=== PATIENT | female | born 1995 | race American Indian/Alaskan Native ===

== ENCOUNTER 2018-01-25 15:45 | Emergency (ER) | payer SELFPAY ==
[2018-01-25 16:52] LABS: HCG Qualitative,Urine Negative (Negative)
[2018-01-25] MEDS ORDERED: ZOFRAN IV ONE ×2 (16:55→23:28)
[2018-01-25] MEDS ORDERED: NACL 0.9% 1000 ML IV ONE (16:55)
--- NOTE | 2018-01-25 16:55 | Emergency Department Report ---
Blank Doc - Documentation Documentation: Patient is a 22-year-old female who is presenting with nausea vomiting diarrhea for approximately a day and a half. Patient is dizzy when she stands. Patient is very ill. Has diffuse abdominal pain. Patient will be moved to the main area for further treatment.
[2018-01-25] MEDS ORDERED: PEPCID IV ONE (16:56)
[2018-01-25 16:57] LABS: Bacteria,Urine 1+ /HPF (Negative); Bilirubin,Urine NEG (Negative); Blood,Urine MOD (Negative); Color,Urine Yellow (Yellow); Mucus,Urine 3+ /HPF; Protein,Urine <15 mg/dL mg/dL (Negative); Urobilinogen,Urine < 2.0 mg/dL (<2.0)
[2018-01-25 17:33] LABS: Basophils % (Auto) 0.2 % (0.0-1.8); Eosinophils % (Auto) 0.1 % (0.0-4.3); Hematocrit 34.1 % (30.3-42.9); Hemoglobin 11.2 gm/dl (10.1-14.3); Lymphocytes # (Auto) 0.8 K/mm3 (1.2-5.4); Lymphocytes % (Auto) 7.1 % (13.4-35.0); Mean Corpuscular HGB Conc 33 % (30-34); Mean Corpuscular Hemoglobin 29 pg (28-32); Mean Corpuscular Volume 87 fl (79-97); Monocytes # (Auto) 0.3 K/mm3 (0.0-0.8); Monocytes % (Auto) 2.6 % (0.0-7.3); Platelet Count 336 K/mm3 (140-440); Red Blood Count 3.92 M/mm3 (3.65-5.03); Red Cell Distribution Width 16.4 % (13.2-15.2)
[2018-01-25 17:56] LABS: Alanine Aminotransferase 14 units/L (7-56); BUN/Creatinine Ratio 10; Blood Urea Nitrogen 6 mg/dL (7-17); Hemolysis Index 1; Lipase 15 units/L (13-60)
[2018-01-25] MEDS ORDERED: REGLAN IV ONE (18:14)
[2018-01-25] MEDS ORDERED: BENADRYL IV ONE (18:14)
--- NOTE | 2018-01-25 18:16 | Emergency Department Report ---
ED N/V/D HPI - General Chief complaint: Nausea/Vomiting/Diarrhea Stated complaint: ABDOMINAL/CHEST PAIN/SICKNESS Time Seen by Provider: 01/25/18 16:22 Source: EMS Mode of arrival: Wheelchair Limitations: No Limitations - History of Present Illness Initial comments: 22-year-old female with no significant past medical or surgical history presents to the hospital complaining of nausea, vomiting, and diarrhea since this a.m. Patient has not been able to tolerate any by mouth intake. She has some "suffocating" left parasternal chest pain. She denies abdominal pain, fever, recent travel, sick contacts, hematuria, melena, or hematochezia. - Related Data Previous Rx's Medication Instructions Recorded Last Taken Type Famotidine [Pepcid] 20 mg PO BID #20 tablet 01/26/18 Unknown Rx Nitrofurantoin [place]/M-Cryst 100 mg PO Q12HR #10 capsule 01/26/18 Unknown Rx [Macrobid CAP] Ondansetron [Zofran Odt] 4 mg PO Q8HR PRN #20 tab.rapdis 01/26/18 Unknown Rx traMADol [Ultram 50 MG tab] 50 mg PO Q6HR PRN #14 tablet 01/26/18 Unknown Rx Allergies Allergy/AdvReac Type Severity Reaction Status Date / Time No Known Allergies Allergy Unverified 01/25/18 16:02 ED Review of Systems ROS: Stated complaint: ABDOMINAL/CHEST PAIN/SICKNESS Other details as noted in HPI Comment: All other systems reviewed and negative ED Past Medical Hx - Past Medical History Previous Medical History?: No - Surgical History Past Surgical History?: No - Social History Smoking Status: Current Every Day Smoker Substance Use Type: None - Medications Home Medications: Home Medications Medication Instructions Recorded Confirmed Last Taken Type Famotidine [Pepcid] 20 mg PO BID #20 tablet 01/26/18 Unknown Rx Nitrofurantoin [place]/M-Cryst 100 mg PO Q12HR #10 capsule 01/26/18 Unknown Rx [Macrobid CAP] Ondansetron [Zofran Odt] 4 mg PO Q8HR PRN #20 tab.rapdis 01/26/18 Unknown Rx traMADol [Ultram 50 MG tab] 50 mg PO Q6HR PRN #14 tablet 01/26/18 Unknown Rx ED Physical Exam - General Limitations: No Limitations - Other Other exam information: General: No limitations, patient is alert in no acute distress Head exam: Atraumatic, normocephalic Eyes exam: Normal appearance, nonicteric sclera ENT: Dry mucous membranes Neck exam: Normal inspection, full range of motion, no meningismus nontender Respiratory exam: Clear to auscultation bilateral, no wheezes, rales, crackles Cardiovascular: Normal rate and rhythm, normal heart sounds Abdomen: Soft, nondistended, and nontender, with normal bowel sounds, no rebound, or guarding. Patient in position. Denies tenderness to palpation but palpation increases nausea Extremity: Full range of motion normal inspection no deformity Back: Normal Inspection, full range of motion, no tenderness Neurologic: Alert, oriented x3, cranial nerves intact, no motor or sensory deficit Psychiatric: normal affect, normal mood Skin: Warm, dry, intact ED Course Vital Signs 01/25/18 01/25/18 01/25/18 15:59 17:56 18:00 Temperature 97.8 F Pulse Rate 68 Respiratory 18 Rate Blood Pressure 100/65 115/83 Blood Pressure [Right] O2 Sat by Pulse 100 100 98 Oximetry 01/25/18 01/25/18 01/25/18 18:15 18:31 18:45 Temperature Pulse Rate Respiratory Rate Blood Pressure 133/85 125/75 125/75 Blood Pressure [Right] O2 Sat by Pulse 98 100 100 Oximetry 01/25/18 01/25/18 01/25/18 19:01 19:05 19:23 Temperature 97.9 F Pulse Rate 70 Respiratory 13 Rate Blood Pressure 133/85 137/81 Blood Pressure 137/81 [Right] O2 Sat by Pulse 99 100 100 Oximetry 01/25/18 01/25/18 01/25/18 19:30 19:45 20:00 Temperature Pulse Rate 55 L 55 L 57 L Respiratory 27 H 22 27 H Rate Blood Pressure 143/84 143/84 143/84 Blood Pressure [Right] O2 Sat by Pulse 99 99 98 Oximetry 01/25/18 01/25/18 01/25/18 20:16 20:30 20:46 Temperature Pulse Rate 67 56 L 55 L Respiratory 23 25 H 25 H Rate Blood Pressure 137/81 126/75 126/75 Blood Pressure [Right] O2 Sat by Pulse 98 98 98 Oximetry 04/10/18 04/10/18 04/10/18 21:00 21:16 21:30 Temperature Pulse Rate 50 L 56 L 55 L Respiratory 21 19 15 Rate Blood Pressure 134/84 134/84 118/77 Blood Pressure [Right] O2 Sat by Pulse 100 100 99 Oximetry 01/25/18 01/25/18 01/25/18 21:46 22:00 22:16 Temperature Pulse Rate 60 57 L 55 L Respiratory 22 24 27 H Rate Blood Pressure 118/77 113/72 113/72 Blood Pressure [Right] O2 Sat by Pulse 99 99 98 Oximetry 01/25/18 01/25/18 22:30 22:46 Temperature Pulse Rate 54 L 60 Respiratory 18 25 H Rate Blood Pressure 131/81 131/81 Blood Pressure [Right] O2 Sat by Pulse 98 Oximetry ED Medical Decision Making - Lab Data Result diagrams: 01/25/18 Unknown 01/25/18 Unknown Lab Results 01/25/18 01/25/18 01/25/18 Range/Units 16:18 Unknown Unknown WBC 10.9 (4.5-11.0) K/mm3 RBC 3.92 (3.65-5.03) M/mm3 Hgb 11.2 (10.1-14.3) gm/dl Hct 34.1 (30.3-42.9) % MCV 87 (79-97) fl MCH 29 (28-32) pg MCHC 33 (30-34) % RDW 16.4 H (13.2-15.2) % Plt Count 336 (140-440) K/mm3 Lymph % (Auto) 7.1 L (13.4-35.0) % [place] % (Auto) 2.6 (0.0-7.3) % Eos % (Auto) 0.1 (0.0-4.3) % Baso % (Auto) 0.2 (0.0-1.8) % Lymph # 0.8 L (1.2-5.4) K/mm3 [place]eman # 0.3 (0.0-0.8) K/mm3 Eos # 0.0 (0.0-0.4) K/mm3 Baso # 0.0 (0.0-0.1) K/mm3 Seg Neutrophils % 90.0 H (40.0-70.0) % Seg Neutrophils # 9.8 H (1.8-7.7) K/mm3 Sodium 139 (137-145) mmol/L Potassium 3.6 (3.6-5.0) mmol/L Chloride 101.4 (98-107) mmol/L Carbon Dioxide 23 (22-30) mmol/L Anion Gap 18 mmol/L BUN 6 L (7-17) mg/dL Creatinine 0.6 L (0.7-1.2) mg/dL Estimated GFR > 60 ml/min BUN/Creatinine Ratio 10 % Glucose 121 H (65-100) mg/dL Calcium 9.0 (8.4-10.2) mg/dL Total Bilirubin 0.30 (0.1-1.2) mg/dL AST 19 (5-40) units/L ALT 14 (7-56) units/L Alkaline Phosphatase 48 (35-129) units/L Total Protein 7.5 (6.3-8.2) g/dL Albumin 4.0 (3.9-5) g/dL Albumin/Globulin Ratio 1.1 % Lipase 15 (13-60) units/L Urine Color Yellow (Yellow) Urine Turbidity Clear (Clear) Urine pH 6.0 (5.0-7.0) Ur Specific [place] 1.023 (1.003-1.030) Urine Protein <15 mg/dl (Negative) mg/dL Urine Glucose (UA) Neg (Negative) mg/dL Urine Ketones 20 (Negative) mg/dL Urine Blood Mod (Negative) Urine Nitrite Neg (Negative) Ur Reducing Substances Not Reportable Urine Bilirubin Neg (Negative) Urine Ictotest Not Reportable Urine Urobilinogen < 2.0 (<2.0) mg/dL Ur Leukocyte Esterase Sm (Negative) Urine WBC (Auto) 15.0 H (0.0-6.0) /HPF Urine RBC (Auto) 42.0 (0.0-6.0) /HPF U Epithel Cells (Auto) 1.0 (0-13.0) /HPF Urine Bacteria (Auto) 1+ (Negative) /HPF Urine Mucus 3+ /HPF Urine HCG, Qual Negative (Negative) - EKG Data -: EKG Interpreted by [facility] EKG shows normal: sinus rhythm, axis (74), QRS complexes (duration 92), ST-T waves (no stemi/t inv) Rate: normal (67) - EKG Data When compared to previous EKG there are: previous EKG unavailable - Medical Decision Making Patient tolerating by mouth. 2 L of normal saline, Zofran, Benadryl, Reglan with improvement in symptoms. Chest pain has resolved without signs of acute abnormality on. Patient will be treated with Macrobid for urinary leukocytosis and symptomatic treatment for nausea. Outpatient follow-up will be encouraged - Differential Diagnosis gastroenteritis, appendicitis, , UTI Critical Care Time: No Critical care attestation.: If time is entered above; I have spent that time in minutes in the direct care of this critically ill patient, excluding procedure time. ED Disposition Clinical Impression: Gastroenteritis, Urine WBC increased, Dehydration Disposition: DC-01 TO HOME OR SELFCARE Is pt being admited?: No Does the pt Need Aspirin: No Condition: Stable Instructions: Gastroenteritis (ED), Urinary Tract Infection in Women (ED) Additional Instructions: Take medications as prescribed. Return if symptoms worsen as indicated by her discharge instructions. Prescriptions: Famotidine [Pepcid] 20 mg PO BID #20 tablet Nitrofurantoin [place]/M-Cryst [Macrobid CAP] 100 mg PO Q12HR #10 capsule Ondansetron [Zofran Odt] 4 mg PO Q8HR PRN #20 tab.rapdis PRN Reason: Nausea And Vomiting traMADol [Ultram 50 MG tab] 50 mg PO Q6HR PRN #14 tablet PRN Reason: Pain Referrals: [facility] [Provider Group] - 3-5 Days (Primary care clinic) CASSANDRA ZHANG MD [Staff Physician] - 3-5 Days (Primary care doctor) Time of Disposition: 00:28
[2018-01-25] MEDS ORDERED: MACROBID PO ONE (23:12)
[2018-01-26 01:20] VITALS: BP 141/83
== END 2018-01-26 01:20 | disposition home or self-care (01) ==
LOC: ED 15:45
DX: K52.9 Noninfective gastroenteritis and colitis, unspecified (principal); E86.0 Dehydration; F17.200 Nicotine dependence, unspecified, uncomplicated
CPT/HCPCS: 36415; 80053; 81001; 81025; 83690; 85025; 93005; 93010; 96361; 96374; 96375; 99284; J1200; J2405; J2765; J7030

== ENCOUNTER 2018-01-27 04:13 | Inpatient (IN) | payer OTHER ==
[2018-01-27 05:17] LABS: Basophils % (Auto) 0.3 % (0.0-1.8); Hematocrit 36.2 % (30.3-42.9); Hemoglobin 12.3 gm/dl (10.1-14.3); Lymphocytes # (Auto) 1.1 K/mm3 (1.2-5.4); Lymphocytes % (Auto) 9.3 % (13.4-35.0); Mean Corpuscular HGB Conc 34 % (30-34); Mean Corpuscular Hemoglobin 29 pg (28-32); Mean Corpuscular Volume 86 fl (79-97); Monocytes # (Auto) 0.5 K/mm3 (0.0-0.8); Platelet Count 431 K/mm3 (140-440); Red Blood Count 4.21 M/mm3 (3.65-5.03); Red Cell Distribution Width 16.1 % (13.2-15.2)
[2018-01-27 05:31] LABS: Alanine Aminotransferase 14 units/L (7-56); Albumin 4.6 g/dL (3.9-5); BUN/Creatinine Ratio 16; Blood Urea Nitrogen 11 mg/dL (7-17); Calcium 9.6 mg/dL (8.4-10.2); Hemolysis Index 0
[2018-01-27 07:04] LABS: Color,Urine Amber (Yellow)
[2018-01-27 07:05] LABS: Bilirubin,Urine SM (Negative); Blood,Urine MOD (Negative); Mucus,Urine 3+ /HPF
[2018-01-27] MEDS ORDERED: NACL 0.9% 1000 ML 1,000 ML IV ONE (07:05)
[2018-01-27] MEDS ORDERED: ZOFRAN IV ONE ×2 (07:06→12:20)
--- NOTE | 2018-01-27 07:07 | Emergency Department Report ---
ED Abdominal Pain HPI - General Chief Complaint: Nausea/Vomiting/Diarrhea Stated Complaint: N/V Time Seen by Provider: 01/27/18 07:01 Source: patient Mode of arrival: Ambulatory Limitations: No Limitations - History of Present Illness Initial Comments: Patient is a 22-year-old female presents to emergency room with complaints of abdominal pain, nausea and vomiting 3 days. Patient states she was seen here a few days back and was diagnosed with a gastrointestinal virus and sent home. Patient states that she has not been able to hold any fluids or solid foods down and these 3 days. Patient states that the symptoms and the pain or worsening. Patient describes the abdominal pain as a stabbing pain is 4 out of 10. Patient states that the pain is better with rest and lying still. Patient states that the pain is worse with palpation and movement. Patient states that the pain is worse with vomiting. Patient denies fever and chills. Patient denies diaphoresis. Patient denies chest pain or shortness of breath. MD Complaint: abdominal pain -: Sudden, days(s) Location: diffuse Radiation: none Migration to: no migration Severity: severe Severity scale (0 -10): 4 Quality: stabbing Consistency: constant Improves With: rest Worsens With: eating, vomiting, movement Associated Symptoms: nausea, vomiting. denies: diarrhea, fever, chills, constipation, dysuria, hematemesis, hematochezia, melena, hematuria, anorexia, syncope - Related Data LMP (females 10-50): last week Previous Rx's Medication Instructions Recorded Last Taken Type Famotidine [Pepcid] 20 mg PO BID #20 tablet 01/26/18 Unknown Rx Nitrofurantoin [place]/M-Cryst 100 mg PO Q12HR #10 capsule 01/26/18 Unknown Rx [Macrobid CAP] Ondansetron [Zofran Odt] 4 mg PO Q8HR PRN #20 tab.rapdis 01/26/18 Unknown Rx traMADol [Ultram 50 MG tab] 50 mg PO Q6HR PRN #14 tablet 01/26/18 Unknown Rx Allergies Allergy/AdvReac Type Severity Reaction Status Date / Time No Known Allergies Allergy Unverified 01/25/18 16:02 ED Review of Systems ROS: Stated complaint: N/V Other details as noted in HPI Comment: All other systems reviewed and negative Constitutional: denies: chills, fever Eyes: denies: eye pain, eye discharge, vision change ENT: denies: ear pain, throat pain Respiratory: denies: cough, shortness of breath, wheezing Cardiovascular: denies: chest pain, palpitations Endocrine: no symptoms reported Gastrointestinal: abdominal pain, nausea, vomiting. denies: diarrhea Genitourinary: denies: urgency, dysuria, discharge Musculoskeletal: denies: back pain, joint swelling, arthralgia Skin: denies: rash, lesions Neurological: denies: headache, weakness, paresthesias Psychiatric: denies: anxiety, depression Hematological/Lymphatic: denies: easy bleeding, easy bruising ED Past Medical Hx - Past Medical History Previous Medical History?: No - Surgical History Past Surgical History?: No - Family History Family history: hypertension - Social History Smoking Status: Current Every Day Smoker Substance Use Type: Alcohol, Marijuana - Medications Home Medications: Home Medications Medication Instructions Recorded Confirmed Last Taken Type Famotidine [Pepcid] 20 mg PO BID #20 tablet 01/26/18 01/27/18 Unknown Rx Nitrofurantoin [place]/M-Cryst 100 mg PO Q12HR #10 capsule 01/26/18 01/27/18 Unknown Rx [Macrobid CAP] Ondansetron [Zofran Odt] 4 mg PO Q8HR PRN #20 tab.rapdis 01/26/18 01/27/18 Unknown Rx traMADol [Ultram 50 MG tab] 50 mg PO Q6HR PRN #14 tablet 01/26/18 01/27/18 Unknown Rx ED Physical Exam - General Limitations: No Limitations General appearance: alert, in no apparent distress - Head Head exam: Present: atraumatic, normocephalic - Eye Eye exam: Present: normal appearance - ENT ENT exam: Present: mucous membranes moist - Neck Neck exam: Present: normal inspection - Respiratory Respiratory exam: Present: normal lung sounds bilaterally. Absent: respiratory distress - Cardiovascular Cardiovascular Exam: Present: regular rate, normal rhythm. Absent: systolic murmur, diastolic murmur, rubs, gallop - GI/Abdominal GI/Abdominal exam: Present: soft, tenderness (tenderness in all 4 quadrants. Tenderness greater in the epigastric region), normal bowel sounds - Extremities Exam Extremities exam: Present: normal inspection - Back Exam Back exam: Present: normal inspection - Neurological Exam Neurological exam: Present: alert, oriented X3 - Psychiatric Psychiatric exam: Present: normal affect, normal mood - Skin Skin exam: Present: warm, dry, intact, normal color. Absent: rash ED Course Vital Signs 01/27/18 01/27/18 08:06 12:30 Temperature 98.8 F Pulse Rate 66 58 L Respiratory 16 16 Rate Blood Pressure 108/58 118/77 [Right] O2 Sat by Pulse 100 98 Oximetry - Reevaluation(s) Reevaluation #1: Consult [facility] [employer] for admission for possible PID. 01/27/18 12:44 Reevaluation #2: Skeletal case with Dr. Burt. Dr. Burt to admit patient to hospital for further evaluation and treatment. Discussed care and admission with patient. The patient agrees to be admitted. Discussed all results with patient 01/27/18 13:11 ED Medical Decision Making - Lab Data Result diagrams: 01/27/18 04:58 01/27/18 04:58 - Radiology Data Radiology results: report reviewed Report reviewed and discussed with the patient. - Medical Decision Making He is a 22-year-old female presents with intractable nausea vomiting found to have PID. Will admit patient to the gynecology service for further evaluation treatment - Differential Diagnosis intractable nausea and vomiting. Abdominal pain. PID. Critical care attestation.: If time is entered above; I have spent that time in minutes in the direct care of this critically ill patient, excluding procedure time. ED Disposition Clinical Impression: Intractable nausea and vomiting, Abdominal pain, Dehydration, PID (acute pelvic inflammatory disease), Urinary tract infection Disposition: OP ADMIT IP TO THIS HOSP Is pt being admited?: Yes Does the pt Need Aspirin: No Condition: Serious Time of Disposition: 12:44
[2018-01-27 07:14] LABS: Ictotest,Urine Negative (Negative)
--- NOTE | 2018-01-27 07:48 | Cat Scan Report ---
FINAL REPORT EXAM: CT ABDOMEN PELVIS WO CON HISTORY: abd pain. n/v TECHNIQUE: CT images obtained through the Abdomen and Pelvis without contrast. Transaxial,coronal and sagittal reformats are provided. PRIORS: None. FINDINGS: Imaged intrathoracic contents are unremarkable. Kidneys are normal in size, axis and position. No hydronephrosis or nephrolithiasis. The ureters are normal in course and caliber. No stones are seen within the urinary bladder. Multiple pelvic phleboliths are present. The liver, gallbladder, pancreas, spleen, and adrenal glands demonstrate a normal noncontrast appearance. Hollow enteric organs are normal in course and caliber. Appendix is normal. No pneumoperitoneum or focal fluid collection identified to suggest abscess formation. There is pelvic stranding and induration of the pelvic fat, particularly anterior to the uterus on axial series 3, images 128-136. A small volume of free fluid is present in the pelvis. The uterus is anteverted. Aorta is normal in course and caliber. Superficial soft tissues are unremarkable. No acute or aggressive appearing skeletal findings. IMPRESSION: Stranding and induration involving the pelvic fat anterior to the uterus and sigmoid colon may be secondary to pelvic inflammatory disease versus fat necrosis/infarction. Clinical correlation with patient's symptoms is requested. Consider pelvic ultrasound as warranted.
[2018-01-27] MEDS ORDERED: TORADOL IV ONE (09:53)
--- NOTE | 2018-01-27 11:35 | Ultrasound Report ---
ULTRASOUND PELVIS COMPLETE - TRANSABDOMINAL AND TRANSVAGINAL: INDICATION: Pelvic pain. COMPARISON: CT from earlier today. FINDINGS: Transabdominal and transvaginal pelvic sonography performed in this patient with LMP of 01/19/2018 demonstrates a normal, anteverted uterus estimated at 7.4 x 3.7 x 3.7 cm. Endometrial thickness estimated at 4 mm. No significant free fluid. Normal bilateral ovaries, estimated at 3.7 x 2.8 x 3.2 cm on the right and 4.2 x 2.6 x 2.6 cm on the left. Physiologic bilateral ovarian follicles and an approximately 1.4 x 0.6 cm complex cyst/ruptured follicle in the left ovary incidentally seen. CONCLUSION: Physiologic pelvic sonogram, as described. Thank you for the opportunity to participate in this patient's care.
[2018-01-27] MEDS ORDERED: ZOFRAN ONE (12:08)
[2018-01-27] MEDS ORDERED: ROCEPHIN/NS 1 GM/50 ML 1 GM/50 ML BAG IV ONE (12:42)
[2018-01-27] MEDS ORDERED: cefTRIAXone 1 GM in NACL 0.9% 20 ML IV ONE (12:45)
[2018-01-27] MEDS ORDERED: MOTRIN PO PRN ×2 (14:37→15:11)
[2018-01-27] MEDS ORDERED: SODIUM CHLORIDE FLUSH SYRINGE 10 ML IV PRN (15:00)
[2018-01-27] MEDS ORDERED: MILK OF MAGNESIA PO PRN (15:00)
[2018-01-27] MEDS ORDERED: TYLENOL PO PRN (15:00)
[2018-01-27] MEDS ORDERED: NORCO 5/325 PO PRN (15:00)
[2018-01-27] MEDS: ALUM-MAG HYDROX-SIMETH 200-200-20MG/5ML PO PRN (15:01)
[2018-01-27] MEDS: D5/0.45NS 1,000 ML IV SCH (15:02)
[2018-01-27] MEDS: DOXYCYCLINE HYCLATE 100 MG in NACL 0.9% 250ML 250 ML IV SCH (15:37)
[2018-01-27] MEDS ORDERED: VITAMIN B-1 100 MG, FOLVITE 1 MG, INFUVITE 10 ML in NACL 0.9% 1000 ML 1,000 ML IV ONE (17:41)
[2018-01-27] MEDS ORDERED: BENADRYL IV ONE (17:44)
[2018-01-27] MEDS ORDERED: PHENERGAN PR PRN (17:44)
--- NOTE | 2018-01-27 17:54 | History and Physical Report ---
History of Present Illness Date of examination: 01/27/18 (pt presents from the ED with c/o N&V and pelvic pain) Date of admission: 01/27/18 13:21 Chief complaint: N&V X 2 days History of present illness: Pt states she has had N&V X 2 days and was seen in the ED 2 days ago but when sx worsened she returned for further evaluation. LMP 4-4-18 wnl per pt Condoms for BC Medical hx none Surgical Hx none Smokes occs cigs and occ marijuana ETOH occasional Pt denies ever having an abnormal pap Last pap was when she was in high school Pt denies any exposure to STD. 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 (none) Family/Genetic History: none Social history: single Medications and Allergies Allergies Allergy/AdvReac Type Severity Reaction Status Date / Time No Known Allergies Allergy Unverified 01/25/18 16:02 Home Medications Medication Instructions Recorded Confirmed Last Taken Type Famotidine [Pepcid] 20 mg PO BID #20 tablet 01/26/18 01/27/18 Unknown Rx Nitrofurantoin [place]/M-Cryst 100 mg PO Q12HR #10 capsule 01/26/18 01/27/18 Unknown Rx [Macrobid CAP] Ondansetron [Zofran Odt] 4 mg PO Q8HR PRN #20 tab.rapdis 01/26/18 01/27/18 Unknown Rx traMADol [Ultram 50 MG tab] 50 mg PO Q6HR PRN #14 tablet 01/26/18 01/27/18 Unknown Rx Active Meds: Active Medications Acetaminophen (Tylenol) 650 mg PO Q4H PRN PRN Reason: Pain MILD(1-3)/Fever >100.5/COBIAN Acetaminophen/Hydrocodone Bitart (Roxana 5/325) 2 each PO Q6H PRN PRN Reason: Pain, Moderate (4-6) Al Hydrox/Mg Hydrox/Simethicone (Alum-Mag Hydrox-Simeth [phone]/5ml) 30 ml PO Q4H PRN PRN Reason: Indigestion Last Admin: 01/27/18 15:01 Dose: 30 ml Diphenhydramine HCl (Benadryl) 25 mg IV ONCE ONE Stop: 01/27/18 17:45 Dextrose/Sodium Chloride (D5/0.45ns) 1,000 mls @ 125 mls/hr IV DIRECT BAIRON Last Admin: 01/27/18 15:02 Dose: 125 mls/hr Doxycycline Hyclate 100 mg/ (Sodium Chloride) 250 mls @ 250 mls/hr IV Q12HR BAIRON ; Protocol Last Admin: 01/27/18 15:37 Dose: 250 mls/hr Thiamine HCl 100 mg/ Folic Acid 1 mg/ Multivitamins/Minerals 10 ml/ Sodium Chloride 1,011.2 mls @ 250 mls/hr IV ONCE ONE Stop: 01/27/18 21:43 Ibuprofen (Motrin) 800 mg PO Q8H PRN PRN Reason: Pain, Mild (1-3) Magnesium Hydroxide (Milk Of Magnesia) 30 ml PO Q4H PRN PRN Reason: Constipation Ondansetron HCl (Zofran) 4 mg IV Q8H PRN PRN Reason: Nausea And Vomiting Promethazine HCl (Phenergan) 25 mg RI Q6H PRN PRN Reason: Nausea And Vomiting Sodium Chloride (Sodium Chloride Flush Syringe 10 Ml) 10 ml IV BID BAIRON Sodium Chloride (Sodium Chloride Flush Syringe 10 Ml) 10 ml IV PRN PRN PRN Reason: LINE FLUSH Review of Systems All systems: negative Eyes: normal appearance Ears, nose, mouth and throat: deferred Breasts: deferred Gastrointestinal: abdominal pain, nausea, vomiting Genitourinary: deferred Rectal Exam: deferred Integumentary: deferred - Vital Signs Vital signs: Vital Signs Temp Pulse Resp BP Pulse Ox 98.8 F 66 16 108/58 100 01/27/18 08:06 01/27/18 08:06 01/27/18 08:06 01/27/18 08:06 01/27/18 08:06 Temp Pulse Resp BP Pulse Ox 99.1 F 59 L 22 111/64 98 01/27/18 16:16 01/27/18 16:16 01/27/18 16:16 01/27/18 16:16 01/27/18 16:16 - Physical Exam Breasts: Positive: deferred Cardiovascular: Regular rate, Normal S1, Normal S2 Lungs: Positive: Normal air movement Abdomen: Positive: normal appearance, soft, normal bowel sounds. Negative: distention, tenderness Genitourinary (Female): Positive: normal external genitalia, normal perenium Vulva: both: normal Vagina: Positive: normal moisture. Negative: discharge Cervix: Negative: lesion, discharge Uterus: Positive: normal size, normal contour Adnexa: both: normal Anus/Rectum: Positive: normal perianal skin, heme negative. Negative: rectal mass, hemorrhoids Extremities: Positive: normal Deep Tendon Reflex Grade: Normal +2 Results Result Diagrams: 01/27/18 04:58 01/27/18 04:58 Abnormal lab results 01/27/18 01/27/18 01/27/18 Range/Units 04:58 04:58 06:17 WBC 11.9 H (4.5-11.0) K/mm3 RDW 16.1 H (13.2-15.2) % Lymph % (Auto) 9.3 L (13.4-35.0) % Lymph # 1.1 L (1.2-5.4) K/mm3 Seg Neutrophils % 86.4 H (40.0-70.0) % Seg Neutrophils # 10.3 H (1.8-7.7) K/mm3 Chloride 97.1 L (98-107) mmol/L Glucose 123 H (65-100) mg/dL Total Protein 8.4 H (6.3-8.2) g/dL Ur Specific [place] 1.032 H (1.003-1.030) Urine WBC (Auto) 52.0 H (0.0-6.0) /HPF All other labs normal. Assessment and Plan 22yo with 2 day duration of N&V and worsening abdominal pain. Eval in ED suggests PID. Labs pending. IVFS, ABX and meds for nausea. aware. Pt w/o questions at this time. Voiced understanding of POC. - Patient Problems (1) Intractable nausea and vomiting Onset Date: ~01/25/18 Current Visit: Yes Status: Acute Plan to address problem: IVFs, sips of liquid, if IV and po antiemetic fail will give Phenergan suppositories. Pt agrees to POC (2) PID (acute pelvic inflammatory disease) Onset Date: ~01/27/18 Current Visit: Yes Status: Acute Plan to address problem: IV hydration, IV antibiotics, labs drawn and obtained. Pt aware of POC
[2018-01-27] MEDS: ZOFRAN IV PRN (19:53)
[2018-01-27 21:20] LABS: Amphetamine Screen,Urine PRESUMPTIVE NEGATIVE; Benzodiazepines Screen,Urine PRESUMPTIVE NEGATIVE; Cocaine Screen,Urine PRESUMPTIVE NEGATIVE; Methadone Screen,Urine PRESUMPTIVE NEGATIVE; Opiate Screen,Urine PRESUMPTIVE NEGATIVE
[2018-01-27 21:40] LABS: Cannabinoid Screen,Urine PRESUMPTIVE POSITIVE
[2018-01-27] MEDS ORDERED: SODIUM CHLORIDE FLUSH SYRINGE 10 ML IV SCH (22:00)
[2018-01-28] MEDS: ALUM-MAG HYDROX-SIMETH 200-200-20MG/5ML PO PRN (02:20)
[2018-01-28] MEDS: D5/0.45NS 1,000 ML IV SCH ×2 (02:21→14:11)
[2018-01-28] MEDS: DOXYCYCLINE HYCLATE 100 MG in NACL 0.9% 250ML 250 ML IV SCH ×2 (03:23→14:59)
[2018-01-28 05:49] LABS: Basophils % (Auto) 0.4 % (0.0-1.8); Eosinophils % (Auto) 0.3 % (0.0-4.3); Hematocrit 31.2 % (30.3-42.9); Hemoglobin 10.7 gm/dl (10.1-14.3); Lymphocytes # (Auto) 1.6 K/mm3 (1.2-5.4); Lymphocytes % (Auto) 17.7 % (13.4-35.0); Mean Corpuscular HGB Conc 34 % (30-34); Mean Corpuscular Hemoglobin 29 pg (28-32); Mean Corpuscular Volume 86 fl (79-97); Monocytes # (Auto) 0.6 K/mm3 (0.0-0.8); Monocytes % (Auto) 6.4 % (0.0-7.3); Platelet Count 315 K/mm3 (140-440); Red Blood Count 3.64 M/mm3 (3.65-5.03); Red Cell Distribution Width 15.8 % (13.2-15.2)
[2018-01-28] MEDS: ZOFRAN IV PRN (06:09)
[2018-01-28 06:16] LABS: Alanine Aminotransferase 10 units/L (7-56); Albumin 3.6 g/dL (3.9-5); BUN/Creatinine Ratio 14; Blood Urea Nitrogen 7 mg/dL (7-17); Hemolysis Index 4
[2018-01-28] MEDS ORDERED: KCL 10MEQ/100ML 10 MEQ/100 ML BAG IV SCH ×2 (07:00→13:00)
--- NOTE | 2018-01-28 07:58 | Progress Note ---
<NOAH CORTEZ - Last Filed: 01/28/18 07:54> Assessment and Plan pt resting in bed " I feel fine." Patient reports abd pain has resolved but she is still having intermittent n/v. VSSAF, WBC now 9.3, ketones 20. Continue current management. - Patient Problems (1) Intractable nausea and vomiting Onset Date: ~01/25/18 Current Visit: Yes Status: Acute (2) PID (acute pelvic inflammatory disease) Onset Date: ~01/27/18 Current Visit: Yes Status: Acute Subjective - Subjective Date of service: 01/28/18 (Skinning Machine Feeder note) Principal diagnosis: PID Patient reports: appetite normal, voiding normally, pain well controlled, nauseated Objective - Vital Signs Latest vital signs: Vital Signs Temp Pulse Pulse Resp BP Pulse Ox 01/28/18 04:10 98.9 F 55 L 18 117/73 01/28/18 00:22 98.1 F 59 L 18 116/61 01/27/18 20:05 98.0 F 54 L 20 110/61 01/27/18 16:16 99.1 F 59 L 22 111/64 98 01/27/18 14:20 99.2 F 54 L 54 L 137/78 100 01/27/18 14:00 52 L 13 112/68 98 01/27/18 12:30 58 L 16 118/77 98 01/27/18 08:06 98.8 F 66 16 108/58 100 Intake and Output 01/27/18 01/27/18 01/28/18 15:59 23:59 07:59 Intake Total 10 1370 Output Total 650 400 Balance 10 720 -400 Intake: IV 10 1250 D5/0.45NS 1,000 ml @ 125 1000 mls/hr IV DIRECT BAIRON Rx#:[id number] Doxycycline Hyclate 100 250 mg In NaCl 0.9% 250Ml 250 ml @ 250 mls/hr IV Q12HR BAIRON Rx#:[id number] Left Antecubital 10 Oral 120 Output: Urine 650 400 Void 650 400 Other: Total, Intake Amount 120 Total, Output Amount 300 400 Voiding Method Toilet Toilet # Voids Void 1 1 Weight 55.5 kg - Exam Cardiovascular: Present: Regular rate Lungs: Present: Clear to auscultation, Normal air movement Abdomen: Present: normal appearance, soft Extremities: Present: normal - Labs Labs: Abnormal lab results 01/28/18 01/28/18 Range/Units 05:31 05:31 RBC 3.64 L (3.65-5.03) M/mm3 RDW 15.8 H (13.2-15.2) % Seg Neutrophils % 75.2 H (40.0-70.0) % Sodium 136 L (137-145) mmol/L Potassium 3.0 L D (3.6-5.0) mmol/L Carbon Dioxide 21 L (22-30) mmol/L Creatinine 0.5 L (0.7-1.2) mg/dL Glucose 115 H (65-100) mg/dL Calcium 8.0 L D (8.4-10.2) mg/dL Albumin 3.6 L (3.9-5) g/dL <KIEL CONTRERAS D - Last Filed: 01/28/18 12:19> Assessment and Plan N/V now with low K= continue K+ supplementation IV. rechk BMP in am Start Pantoprazole IB No s/s PID, normal TVUS; however will cont i nue Doxy for now, probable gastritis/esophagitis Will consult hospitalist - Patient Problems (1) Hypokalemia Current Visit: Yes Status: Acute Plan to address problem: Continue K+ supplementation (2) Dehydration Current Visit: Yes Status: Acute Plan to address problem: Improving (3) Intractable nausea and vomiting Onset Date: ~01/25/18 Current Visit: Yes Status: Acute Qualifiers: Vomiting type: unspecified Qualified Code(s): R11.2 - Nausea with vomiting , unspecified Plan to address problem: Continue antiemetics Hospitalist consultation (4) Gastroenteritis Current Visit: No Status: Acute (5) Abdominal pain Current Visit: Yes Status: Resolved Qualifiers: Abdominal location: epigastric Qualified Code(s): R10.13 - Epigastric pain Subjective - Subjective Principal diagnosis: nausea/ vomiting Interval history: No further pain, still with n/v, improved, spitting mostly, brownish earlier. Pain was mostly upper abdomen and umbilical. Denies pelvic pain or vaginal discharge. LMP 01/19/2018 Objective - Vital Signs Latest vital signs: Vital Signs Temp Pulse Pulse Resp BP Pulse Ox 01/28/18 08:25 98.8 F 56 L 18 111/62 01/28/18 04:10 98.9 F 55 L 18 117/73 01/28/18 00:22 98.1 F 59 L 18 116/61 01/27/18 20:05 98.0 F 54 L 20 110/61 01/27/18 16:16 99.1 F 59 L 22 111/64 98 01/27/18 14:20 99.2 F 54 L 54 L 137/78 100 01/27/18 14:00 52 L 13 112/68 98 01/27/18 12:30 58 L 16 118/77 98 Intake and Output 01/27/18 01/28/18 01/28/18 22:59 06:59 14:59 Intake Total 370 1000 Output Total 350 700 Balance 20 300 Intake: IV 250 1000 D5/0.45NS 1,000 ml @ 125 1000 mls/hr IV DIRECT BAIRON Rx#:[id number] Doxycycline Hyclate 100 250 mg In NaCl 0.9% 250Ml 250 ml @ 250 mls/hr IV Q12HR BAIRON Rx#:[id number] Oral 120 Output: Urine 350 700 Void 350 700 Other: Total, Intake Amount 120 Total, Output Amount 250 400 Voiding Method Toilet Toilet # Voids Void 1 1 1 - Exam Abdomen: Present: normal bowel sounds. Absent: tenderness - Labs Labs: Abnormal lab results 01/28/18 01/28/18 Range/Units 05:31 05:31 RBC 3.64 L (3.65-5.03) M/mm3 RDW 15.8 H (13.2-15.2) % Seg Neutrophils % 75.2 H (40.0-70.0) % Sodium 136 L (137-145) mmol/L Potassium 3.0 L D (3.6-5.0) mmol/L Carbon Dioxide 21 L (22-30) mmol/L Creatinine 0.5 L (0.7-1.2) mg/dL Glucose 115 H (65-100) mg/dL Calcium 8.0 L D (8.4-10.2) mg/dL Albumin 3.6 L (3.9-5) g/dL
[2018-01-28] MEDS ORDERED: REGLAN IV PRN ×2 (12:09→12:31)
[2018-01-28] MEDS ORDERED: PROTONIX IV SCH ×2 (13:00→22:00)
[2018-01-28] MEDS ORDERED: KCL 30 MEQ in NACL 0.9% 250ML 300 ML IV ONE (14:00)
[2018-01-28] MEDS: PHENERGAN PR SCH ×2 (14:01→21:54)
[2018-01-28] MEDS: PEPCID IV SCH (14:03)
--- NOTE | 2018-01-28 20:30 | Consultation ---
History of Present Illness - Reason for Consult Consult date: 01/28/18 medical management Requesting physician: BENITO GEIGER - History of Present Illness History of Present Illness 22-year-old -[place] female presented to the emergency room yesterday for abdominal pain nausea vomiting for 3 days. Patient was treated as acute gastroenteritis 3 days ago and was sent home. Patient comes back again for the same symptoms and also abdominal pain all over. Pain is about 6 on a scale of 1 -10. Patient was admitted to the RETAIL AGENT service for possible pelvic inspiratory disease because there was fat pad infarction posterior to the the uterus . OUTSIDE MEDICAL SALES REPRESENTATIVE service: Twice a day today. Patient continues to vomit but less than yesterday. Also her potassium was low today. Being supplemented. No exacerbating or relieving factors except food - Related Data LMP (females 10-50): last week Previous Rx's - Past Medical History Previous Medical History?: No - Surgical History Past Surgical History?: No - Family History Family history: hypertension - Social History Smoking Status: Current Every Day Smoker Substance Use Type: Alcohol, Marijuana - Medications Home Medications: Home Medications Medication Instructions Recorded Confirmed Last Taken Type Famotidine [Pepcid] 20 mg PO BID #20 tablet 01/26/18 01/27/18 Unknown Rx Nitrofurantoin Ramsey/M-Cryst 100 mg PO Q12HR #10 capsule 01/26/18 01/27/18 Unknown Rx [Macrobid CAP] Ondansetron [Zofran Odt] 4 mg PO Q8HR PRN #20 tab.rapdis 01/26/18 01/27/18 Unknown Rx traMADol [Ultram 50 MG tab] 50 mg PO Q6HR PRN #14 tablet 01/26/18 01/27/18 Unknown Rx Review of Systems ROS: Stated complaint: N/V Other details as noted in HPI Comment: All other systems reviewed and negative Constitutional: denies: chills, fever Eyes: denies: eye pain, eye discharge, vision change ENT: denies: ear pain, throat pain Respiratory: denies: cough, shortness of breath, wheezing Cardiovascular: denies: chest pain, palpitations Endocrine: no symptoms reported Gastrointestinal: abdominal pain, nausea, vomiting. denies: diarrhea Genitourinary: denies: urgency, dysuria, discharge Musculoskeletal: denies: back pain, joint swelling, arthralgia Skin: denies: rash, lesions Neurological: denies: headache, weakness, paresthesias Psychiatric: denies: anxiety, depression Hematological/Lymphatic: denies: easy bleeding, easy bruising Past History Social history: single Medications and Allergies Allergies Allergy/AdvReac Type Severity Reaction Status Date / Time No Known Allergies Allergy Unverified 01/25/18 16:02 Home Medications Medication Instructions Recorded Confirmed Last Taken Type Famotidine [Pepcid] 20 mg PO BID #20 tablet 01/26/18 01/27/18 Unknown Rx Nitrofurantoin Ramsey/M-Cryst 100 mg PO Q12HR #10 capsule 01/26/18 01/27/18 Unknown Rx [Macrobid CAP] Ondansetron [Zofran Odt] 4 mg PO Q8HR PRN #20 tab.rapdis 01/26/18 01/27/18 Unknown Rx traMADol [Ultram 50 MG tab] 50 mg PO Q6HR PRN #14 tablet 01/26/18 01/27/18 Unknown Rx Active Meds: Active Medications Acetaminophen (Tylenol) 650 mg PO Q4H PRN PRN Reason: Pain MILD(1-3)/Fever >100.5/COBIAN Acetaminophen/Hydrocodone Bitart (Whiteface 5/325) 2 each PO Q6H PRN PRN Reason: Pain, Moderate (4-6) Al Hydrox/Mg Hydrox/Simethicone (Alum-Mag Hydrox-Simeth 353-243-68pg/5ml) 30 ml PO Q4H PRN PRN Reason: Indigestion Last Admin: 01/28/18 02:20 Dose: 30 ml Famotidine (Pepcid) 20 mg IV BID BAIRON Last Admin: 01/28/18 14:03 Dose: 20 mg Dextrose/Sodium Chloride (D5/0.45ns) 1,000 mls @ 125 mls/hr IV DIRECT BAIRON Last Admin: 01/28/18 14:11 Dose: 125 mls/hr Doxycycline Hyclate 100 mg/ (Sodium Chloride) 250 mls @ 250 mls/hr IV Q12HR BAIRON ; Protocol Last Admin: 01/28/18 14:59 Dose: 250 mls/hr Magnesium Hydroxide (Milk Of Magnesia) 30 ml PO Q4H PRN PRN Reason: Constipation Metoclopramide HCl (Reglan) 10 mg IV Q6H PRN PRN Reason: Nausea And Vomiting Stop: 01/29/18 12:30 Last Admin: 01/28/18 17:05 Dose: 10 mg Metoclopramide HCl (Reglan) 10 mg PO Q6H PRN PRN Reason: Nausea And Vomiting Ondansetron HCl (Zofran) 4 mg IV Q8H PRN PRN Reason: Nausea And Vomiting Last Admin: 01/28/18 06:09 Dose: 4 mg Promethazine HCl (Phenergan) 25 mg KS Q6HR BAIRON Stop: 01/29/18 06:01 Last Admin: 01/28/18 14:01 Dose: 25 mg Sodium Chloride (Sodium Chloride Flush Syringe 10 Ml) 10 ml IV BID BAIRON Sodium Chloride (Sodium Chloride Flush Syringe 10 Ml) 10 ml IV PRN PRN PRN Reason: LINE FLUSH Exam - Physical Exam Narrative exam: Resting comfortably. - Constitutional Vitals: Temp Pulse Resp BP Pulse Ox 99.2 F 61 20 117/74 98 01/28/18 16:50 01/28/18 16:50 01/28/18 16:50 01/28/18 16:50 01/27/18 16:16 General appearance: Present: no acute distress, well-nourished - EENT Eyes: Present: PERRL ENT: hearing intact, clear oral mucosa - Neck Neck: Present: supple, normal ROM - Respiratory Respiratory effort: normal Respiratory: bilateral: CTA - Cardiovascular Heart rate: 67 Rhythm: regular Heart Sounds: Present: S1 & S2. Absent: rub, click - Extremities Extremities: no ischemia, pulses intact, pulses symmetrical, No edema Peripheral Pulses: within normal limits - Abdominal General gastrointestinal: Present: soft, non-tender, non-distended, normal bowel sounds Female genitourinary: Present: normal - Integumentary Integumentary: Present: clear, warm, dry - Musculoskeletal Musculoskeletal: gait normal, strength equal bilaterally - Psychiatric Psychiatric: appropriate mood/affect, intact judgment & insight - Neurologic Neurologic: CNII-XII intact, moves all extremities - Allied Health Allied health notes reviewed: nursing, case management Results - Labs CBC & Chem 7: 01/28/18 05:31 01/28/18 05:31 Labs: Abnormal lab results 01/28/18 01/28/18 Range/Units 05:31 05:31 RBC 3.64 L (3.65-5.03) M/mm3 RDW 15.8 H (13.2-15.2) % Seg Neutrophils % 75.2 H (40.0-70.0) % Sodium 136 L (137-145) mmol/L Potassium 3.0 L D (3.6-5.0) mmol/L Carbon Dioxide 21 L (22-30) mmol/L Creatinine 0.5 L (0.7-1.2) mg/dL Glucose 115 H (65-100) mg/dL Calcium 8.0 L D (8.4-10.2) mg/dL Albumin 3.6 L (3.9-5) g/dL IMPRESSION: Stranding and induration involving the pelvic fat anterior to the uterus and sigmoid colon may be secondary to pelvic inflammatory disease versus fat necrosis/infarction. Clinical correlation with patient's symptoms is requested. Consider pelvic ultrasound as warranted. - Imaging and Cardiology CT scan - abdomen: report reviewed Assessment and Plan - Patient Problems (1) Acute gastritis Current Visit: Yes Status: Acute Plan to address problem: Possible drug-induced Can be exacerbated by antibiotics with Macrobid and doxycycline.. She doesn't need antibiotics at this point of time as the PID is ruled out. IV Protonix initiated. IV Rocephin initiated for UTI (2) Intractable nausea and vomiting Onset Date: ~01/25/18 Current Visit: Yes Status: Acute Qualifiers: Vomiting type: unspecified Qualified Code(s): R11.2 - Nausea with vomiting , unspecified Plan to address problem: IV fluids IV proton X and symptomatic treatment. (3) Hypokalemia Current Visit: Yes Status: Acute Plan to address problem: Supplemented (4) PID (acute pelvic inflammatory disease) Onset Date: ~01/27/18 Current Visit: Yes Status: Resolved Plan to address problem: Ruled out (5) Urinary tract infection Current Visit: Yes Status: Acute Qualifiers: Urinary tract infection type: acute cystitis Plan to address problem: IV Rocephin 2 doses and discharge tomorrow if necessary on cephalexin. Will check UA tomorrow (6) DVT prophylaxis Current Visit: Yes Status: Acute Plan to address problem: Heparin subcutaneous
[2018-01-28] MEDS ORDERED: XYLOCAINE 1% MPF 5 mL INFILTRATI ONE (20:46)
[2018-01-28] MEDS ORDERED: ROCEPHIN IM SCH (21:00)
[2018-01-28] MEDS: ROCEPHIN IM SCH (22:50)
[2018-01-29] MEDS: D5/0.45NS 1,000 ML IV SCH (00:12)
[2018-01-29] MEDS: PEPCID IV SCH (01:59)
[2018-01-29] MEDS: PHENERGAN PR SCH (05:46)
[2018-01-29 06:21] LABS: BUN/Creatinine Ratio 3; Blood Urea Nitrogen 2 mg/dL (7-17); Calcium 8.7 mg/dL (8.4-10.2); Hemolysis Index 36
[2018-01-29] MEDS ORDERED: ZITHROMAX PO ONE (06:41)
[2018-01-29] MEDS ORDERED: K-DUR PO ONE (08:00)
[2018-01-29] MEDS ORDERED: PEPCID PO SCH (10:00)
[2018-01-29] MEDS ORDERED: PROTONIX PO SCH (10:00)
[2018-01-29] MEDS: ZOFRAN IV PRN (10:50)
[2018-01-29] MEDS ORDERED: ZOFRAN IV PRN (11:07)
--- NOTE | 2018-01-29 11:08 | Progress Note ---
Assessment and Plan - Patient Problems (1) Acute gastritis Current Visit: Yes Status: Acute Plan to address problem: -SEEMS TO BE RESOLVING -WILL D/C HOME ON MEDS AND ADAT (2) Hypokalemia Current Visit: Yes Status: Acute Plan to address problem: -ENCOURAGED HIGH POTASSIUM FOODS. WILL LIKELY CON'T TO IMPROVE WITH PO THERAPY AND DIET -F/U OUT PT (3) Intractable nausea and vomiting Onset Date: ~01/25/18 Current Visit: Yes Status: Acute Qualifiers: Vomiting type: unspecified Qualified Code(s): R11.2 - Nausea with vomiting , unspecified Plan to address problem: -RESOLVED -TOLERATING A CLEAR DIET AND TO HAVE REGULAR DIET FOR LUNCH (4) PID (acute pelvic inflammatory disease) Onset Date: ~01/27/18 Current Visit: Yes Status: Resolved Plan to address problem: -GC/CHLM POSITIVE -WILL D/C HOME ON ORAL MEDS FOR TOTAL OF 7 DAY TREATMENT. Subjective - Subjective Date of service: 01/29/18 Principal diagnosis: nausea/ vomiting Interval history: PT STATES SHE HAS FELT MUCH BETTER SINCE ADMISSION AND WOULD LIKE TO BE D/C HOME IF POSSIBLE. SHE HAD ONE EPISODE OF EMESIS THIS AM AFTER TAKING REFLX MEDS PO THIS AM. SHE STATES SHE WANTS TO TRY TO DO THE CLEAR DIET AT HOME AND SLOWLY ADVANCE IT. I HAVE GIVEN HER INSTRUCTIONS REGARDING THIS. PT ALSO INFORMED THAT SHE IS GC AND CHLM POSITIVE. PT EXPRESSED UNDERSTANDING. STRESSED IMPORTANCE OF COMPLETED COURSE OF ANTIBX FOR BOTH IN LIGHT OF ? DX OF PID. AGAIN PT EXPRESSED UNDERSTANDING. Patient reports: appetite normal, voiding normally, pain well controlled Objective - Vital Signs Latest vital signs: Vital Signs Temp Pulse Resp BP BP Pulse Ox 01/29/18 08:12 98.8 F 57 L 18 118/69 98 01/29/18 04:00 99 F 54 L 16 111/70 01/29/18 00:50 98.7 F 59 L 18 118/56 01/28/18 21:10 99.8 F H 55 L 18 134/81 01/28/18 16:50 99.2 F 61 20 117/74 01/28/18 12:59 98.3 F 57 L 20 113/77 Intake and Output 01/28/18 01/29/18 01/29/18 22:59 06:59 14:59 Intake Total 1120 360 250 Output Total 300 650 800 Balance 820 -290 -550 Intake: IV 1000 10 D5/0.45NS 1,000 ml @ 125 1000 mls/hr IV DIRECT BAIRON Rx#:[id number] Left Antecubital 10 Oral 120 240 Intake, Free Water 360 Output: Urine 300 650 800 Void 300 650 800 Other: Total, Intake Amount 120 240 Total, Output Amount 300 250 800 # Voids Void 2 # Bowel Movements 1 - Exam Cardiovascular: Present: Normal S1, Normal S2 Lungs: Present: Clear to auscultation, Normal air movement Abdomen: Present: normal appearance, soft. Absent: distention, tenderness, guarding Extremities: Present: edema (OF THE LEFT HAND FROM INFITRATION OF THE IV) - Labs Labs: Abnormal lab results 01/27/18 01/29/18 Range/Units Unknown 05:36 Sodium 133 L (137-145) mmol/L Potassium 3.2 L (3.6-5.0) mmol/L Chloride 97.9 L (98-107) mmol/L Carbon Dioxide 21 L (22-30) mmol/L BUN 2 L (7-17) mg/dL Creatinine 0.6 L (0.7-1.2) mg/dL C.trachomatis DNA (SDA) Detected H (Not Detected) N.gonorrhoeae DNA (SDA) Detected H (Not Detected)
--- NOTE | 2018-01-29 11:44 | Discharge Summary ---
Providers - Providers Date of Admission: 01/27/18 13:21 Date of discharge: 01/29/18 Attending physician: AVEL LEMONS MD 01/28/18 12:25 Consult to Physician [CONS] Routine Comment: Consulting Provider: RICHARD QUEEN Physician Instructions: Reason For Exam: Gastritis. intractable n/v Primary care physician: SHERI KRUEGER Hospitalization Reason for admission: other (nausea, vomiting, and epigastric pain) Hospital course: Pt admitted with dx of PID and was noted to have +GC/CHLM cx for which she was treated. She initially had n/v that was not resolving but today was noted to be feeling better and tolerating a clear diet. Pt desires d/c home today. Condition at discharge: Good Disposition: DC-01 TO HOME OR SELFCARE Plan - Discharge Medications Prescriptions: Doxycycline [Vibramycin CAP] 100 mg PO Q12HR #10 capsule Famotidine [Pepcid] 20 mg PO BID #30 tablet metroNIDAZOLE [Flagyl] 500 mg PO Q12HR #10 tab Promethazine [Phenergan SUPPOS] 12.5 mg NE Q6H PRN #15 supp.rect PRN Reason: Nausea - Provider Discharge Summary Additional instructions: [] Smoking cessation referral if applicable(refer to patient education folder for contact #) [] Refer to [facility] Booklet Call your doctor immediately for: * Fever > 100.5 * Heavy vaginal bleeding ( >1 pad per hour) * Severe persistent headache * Shortness of breath * Reddened, hot, painful area to leg or breast * Drainage or odor from incision. * Keep incision clean and dry at all times and follow doctor's instructions regarding bathing/showering - Follow up plan Follow up: SHERI KRUEGER MD [Primary Care Provider] - 3-5 Days Forms: [facility] Discharge Summary
[2018-01-29] MEDS ORDERED: XYLOCAINE 1% MPF 5 mL INFILTRATI ONE (12:00)
[2018-01-29] MEDS: ROCEPHIN IM SCH (12:02)
[2018-01-29] MEDS ORDERED: REGLAN PO PRN (12:31)
--- NOTE | 2018-01-29 13:59 | Progress Note ---
Assessment and Plan Assessment and plan: 22-year-old -I[place] female presented to the emergency room yesterday for abdominal pain nausea vomiting for 3 days. Patient was treated as acute gastroenteritis 3 days ago and was sent home. Patient comes back again for the same symptoms and also abdominal pain all over. Pain is about 6 on a scale of 1 -10. Patient was admitted to the PAPER CUTTING MACHINE OPERATOR service for possible pelvic inspiratory disease because there was fat pad infarction posterior to the the uterus . COTTON GINNER HELPER service: Twice a day today. Patient continues to vomit but less than yesterday. Also her potassium was low today. Being supplemented. No exacerbating or relieving factors except food (1) Acute gastritis Current Visit: Yes Status: Acute Plan to address problem: Possible drug-induced Can be exacerbated by antibiotics with Macrobid and doxycycline.. She doesn't need antibiotics at this point of time as the PID is ruled out. IV Protonix initiated. IV Rocephin initiated for UTI (2) Intractable nausea and vomiting Onset Date: ~01/25/18 Current Visit: Yes Status: Acute Qualifiers: Vomiting type: unspecified Qualified Code(s): R11.2 - Nausea with vomiting , unspecified Plan to address problem: IV fluids IV proton X and symptomatic treatment. (3) Hypokalemia Current Visit: Yes Status: Acute Plan to address problem: Supplemented (4) PID (acute pelvic inflammatory disease) Onset Date: ~01/27/18 Current Visit: Yes Status: Resolved Plan to address problem: Ruled out (5) Urinary tract infection Current Visit: Yes Status: Acute Qualifiers: Urinary tract infection type: acute cystitis Plan to address problem: IV Rocephin 2 doses and discharge tomorrow if necessary on cephalexin. Will check UA tomorrow (6) serology positive for G/C, flagly and rocephin given. patient advised that significant other has to be treated. Nurse notified. Defer further management to annealing oven operator (7)DVT prophylaxis Current Visit: Yes Status: Acute Plan to address problem: Heparin subcutaneous History Interval history: % Examined and noted distress resting comfortably. Denies any chest pain nausea vomiting denies any history of STDs in the past. Hospitalist Physical - Physical exam Narrative exam: VITAL SIGNS: Reviewed. GENERAL: The patient appeared well nourished and normally developed. Vital signs as documented. HEAD: No signs of head trauma. EYES: Pupils are equal. Extraocular motions intact. EARS: Hearing grossly intact. MOUTH: Oropharynx is normal. NECK: No adenopathy, no JVD. CHEST: Chest with clear breath sounds bilaterally. No wheezes, rales, or rhonchi. CARDIAC: Regular rate and rhythm. S1 and S2, without murmurs, gallops, or rubs. VASCULAR: No Edema. Peripheral pulses normal and equal in all extremities. ABDOMEN: Soft, without detectable tenderness. No sign of distention. No rebound or guarding, and no masses palpated. Bowel Sounds normal. MUSCULOSKELETAL: Good range of motion of all major joints. Extremities without clubbing, cyanosis or edema. NEUROLOGIC EXAM: Alert and oriented x 3. No focal sensory or strength deficits. Speech normal. Follows commands. PSYCHIATRIC: Mood normal. SKIN: No rash or lesions. - Constitutional Vitals: Temp Pulse Resp BP Pulse Ox 98.8 F 57 L 18 118/69 98 01/29/18 08:12 01/29/18 08:12 01/29/18 08:12 01/29/18 08:12 01/29/18 08:12 General appearance: Present: no acute distress, well-nourished Results - Labs CBC & Chem 7: 01/28/18 05:31 01/29/18 05:36 Labs: Laboratory Last Values WBC 9.3 K/mm3 (4.5-11.0) 01/28/18 05:31 RBC 3.64 M/mm3 (3.65-5.03) L 01/28/18 05:31 Hgb 10.7 gm/dl (10.1-14.3) 01/28/18 05:31 Hct 31.2 % (30.3-42.9) 01/28/18 05:31 MCV 86 fl (79-97) 01/28/18 05:31 MCH 29 pg (28-32) 01/28/18 05:31 MCHC 34 % (30-34) 01/28/18 05:31 RDW 15.8 % (13.2-15.2) H 01/28/18 05:31 Plt Count 315 K/mm3 (140-440) 01/28/18 05:31 Lymph % (Auto) 17.7 % (13.4-35.0) 01/28/18 05:31 [place] % (Auto) 6.4 % (0.0-7.3) 01/28/18 05:31 Eos % (Auto) 0.3 % (0.0-4.3) 01/28/18 05:31 Baso % (Auto) 0.4 % (0.0-1.8) 01/28/18 05:31 Lymph # 1.6 K/mm3 (1.2-5.4) 01/28/18 05:31 [place] # 0.6 K/mm3 (0.0-0.8) 01/28/18 05:31 Eos # 0.0 K/mm3 (0.0-0.4) 01/28/18 05:31 Baso # 0.0 K/mm3 (0.0-0.1) 01/28/18 05:31 Seg Neutrophils % 75.2 % (40.0-70.0) H 01/28/18 05:31 Seg Neutrophils # 7.0 K/mm3 (1.8-7.7) 01/28/18 05:31 Sodium 133 mmol/L (137-145) L 01/29/18 05:36 Potassium 3.2 mmol/L (3.6-5.0) L 01/29/18 05:36 Chloride 97.9 mmol/L (98-107) L 01/29/18 05:36 Carbon Dioxide 21 mmol/L (22-30) L 01/29/18 05:36 Anion Gap 17 mmol/L 01/29/18 05:36 BUN 2 mg/dL (7-17) L 01/29/18 05:36 Creatinine 0.6 mg/dL (0.7-1.2) L 01/29/18 05:36 Estimated GFR > 60 ml/min 01/29/18 05:36 BUN/Creatinine Ratio 3 % 01/29/18 05:36 Glucose 98 mg/dL (65-100) 01/29/18 05:36 POC Glucose 86 (70-105) 01/28/18 00:17 Lactic Acid 1.10 mmol/L (0.7-2.0) 01/27/18 10:05 Calcium 8.7 mg/dL (8.4-10.2) 01/29/18 05:36 Total Bilirubin 0.50 mg/dL (0.1-1.2) 01/28/18 05:31 AST 13 units/L (5-40) 01/28/18 05:31 ALT 10 units/L (7-56) 01/28/18 05:31 Alkaline Phosphatase 44 units/L (35-129) 01/28/18 05:31 Total Protein 6.6 g/dL (6.3-8.2) D 01/28/18 05:31 Albumin 3.6 g/dL (3.9-5) L 01/28/18 05:31 Albumin/Globulin Ratio 1.2 % 01/28/18 05:31 HCG, Qual Negative (Negative) 01/27/18 04:58 Urine Color Kaylee (Yellow) 01/27/18 06:17 Urine Turbidity Clear (Clear) 01/27/18 06:17 Urine pH 5.0 (5.0-7.0) 01/27/18 06:17 Ur Specific [place] 1.032 (1.003-1.030) H 01/27/18 06:17 Urine Protein 100 mg/dl mg/dL (Negative) 01/27/18 06:17 Urine Glucose (UA) 50 mg/dL (Negative) 01/27/18 06:17 Urine Ketones 20 mg/dL (Negative) 01/28/18 04:00 Urine Blood Mod (Negative) 01/27/18 06:17 Urine Nitrite Neg (Negative) 01/27/18 06:17 Urine Bilirubin Sm (Negative) 01/27/18 06:17 Urine Ictotest Negative (Negative) 01/27/18 06:17 Urine Urobilinogen 2.0 mg/dL (<2.0) 01/27/18 06:17 Ur Leukocyte Esterase Mod (Negative) 01/27/18 06:17 Urine WBC (Auto) 52.0 /HPF (0.0-6.0) H 01/27/18 06:17 Urine RBC (Auto) 171.0 /HPF (0.0-6.0) 01/27/18 06:17 U Epithel Cells (Auto) 4.0 /HPF (0-13.0) 01/27/18 06:17 Urine Mucus 3+ /HPF 01/27/18 06:17 Urine Opiates Screen Presumptive negative 01/27/18 20:30 Urine Methadone Screen Presumptive negative 01/27/18 20:30 Ur Barbiturates Screen Presumptive negative 01/27/18 20:30 Ur Phencyclidine Scrn Presumptive negative 01/27/18 20:30 Ur Amphetamines Screen Presumptive negative 01/27/18 20:30 U Benzodiazepines Scrn Presumptive negative 01/27/18 20:30 Urine Cocaine Screen Presumptive negative 01/27/18 20:30 U Marijuana (THC) Screen Presumptive positive 01/27/18 20:30 Drugs of Abuse Note Disclamer 01/27/18 20:30 RPR Nonreactive (Nonreactive) 01/27/18 19:59 C.trachomatis DNA (SDA) Detected (Not Detected) H 01/27/18 Unknown Hep Bs Antigen Non-reactive (Negative) 01/27/18 19:59 Hepatitis C Antibody Non-reactive (NonReactive) 01/27/18 19:59 HIV 1&2 Antibody Rapid Non react (Non React) 01/27/18 19:59 HIV P24 Antigen Non react (Non React) 01/27/18 19:59 N.gonorrhoeae DNA (SDA) Detected (Not Detected) H 01/27/18 Unknown
[2018-01-29] MEDS ORDERED: FLAGYL 500 MG/100 ML 500 MG/100 ML BAG IV SCH (14:00)
[2018-01-29] MEDS ORDERED: VIGAMOX OU SCH (15:00)
[2018-01-29 17:40] VITALS: BP 116/74
== END 2018-01-29 19:10 | disposition home or self-care (01) | DRG 758 ==
LOC: ED 04:13 → OB 13:21
PROVIDERS: ADMIT Obstetrics & Gynecology; ATTEND Internal Medicine
DX: N73.9 Female pelvic inflammatory disease, unspecified (principal); N39.0 Urinary tract infection, site not specified; E86.0 Dehydration; Z82.49 Family history of ischemic heart disease and other diseases of the circulatory system; F17.200 Nicotine dependence, unspecified, uncomplicated; F12.90 Cannabis use, unspecified, uncomplicated; E87.6 Hypokalemia; K52.9 Noninfective gastroenteritis and colitis, unspecified; K29.00 Acute gastritis without bleeding
CPT/HCPCS: 36415; 74176; 76830; 76856; 80048; 80053; 80307; 81001; 82010; 82140; 82962; 84703; 85025; 86592; 86706; 86803; 87591; 87806; 93005; 93010; 96361; 96374; 96375; C9113; J0696; J1200; J1885; J2405; J2765; J3411; J3480; J7030; J7050